=== PATIENT | male | born 1965 | race Caucasian/White ===

== ENCOUNTER 2017-04-15 12:30 | Observation (INO) ==
[2017-04-15] MEDS ORDERED: METOPROLOL TARTRATE 5 MG/5 ML VIAL IV ONE (12:52)
[2017-04-15] MEDS ORDERED: METOPROLOL TARTRATE 5 MG/5 ML VIAL IV STA (12:53)
[2017-04-15 13:20] LABS: Calcium 9.7 MG/DL (8.5-10.1); Osmolality,Calculated 275.7 MOS/KG (273-304); Potassium 4.1 MMOL/L (3.5-5.1)
[2017-04-15] MEDS ORDERED: DOCUSATE SODIUM 100 MG CAPSULE PO PRN (13:52)
[2017-04-15] MEDS ORDERED: ACETAMINOPHEN 325 MG TABLET PO PRN (13:52)
[2017-04-15] MEDS ORDERED: MORPHINE 2 MG/1 ML SYRINGE IV PRN (13:52)
[2017-04-15] MEDS ORDERED: diphenhydrAMINE CAP 25 MG CAPSULE PO PRN (13:52)
[2017-04-15] MEDS ORDERED: ONDANSETRON 4 MG/2 ML VIAL IV PRN (13:52)
[2017-04-15] MEDS ORDERED: ZALEPLON 5 MG CAPSULE PO PRN (13:52)
[2017-04-15] MEDS ORDERED: MAGNESIUM SULF RIDER 2 GM in PREMIX 1 EACH IV PRN (13:52)
[2017-04-15] MEDS ORDERED: MAGNESIUM SULF RIDER 4 GM in PREMIX 1 EACH IV PRN (13:52)
[2017-04-15] MEDS ORDERED: LACTULOSE 20 GM/30 ML UDCUP PO PRN (13:52)
[2017-04-15] MEDS ORDERED: GLUCAGON 1 MG VIAL IM PRN (13:56)
[2017-04-15] MEDS ORDERED: DEXTROSE 50% 25 GM/50 ML VIAL IV PRN (13:56)
[2017-04-15] MEDS ORDERED: CETIRIZINE 10 MG TABLET PO PRN (14:02)
[2017-04-15] MEDS ORDERED: METOPROLOL SUCCINATE XL 25 MG TABLET PO ONE (14:03)
[2017-04-15] MEDS ORDERED: PANTOPRAZOLE 40 MG TABLET PO ONE (15:26)
[2017-04-15] MEDS: PANTOPRAZOLE 40 MG TABLET PO SCH (15:29)
[2017-04-15] MEDS: SODIUM CHLORIDE 0.45% 1,000 ML IV SCH ×2 (15:29→23:11)
[2017-04-15 16:22] LABS: Barbiturates Screen,Urine Negative (Negative); Benzodiazepines Screen,Urine Negative (Negative); Cannabinoid Screen,Urine Negative (Negative); Opiate Screen,Urine Negative (Negative); Phencyclidine Screen,Urine Negative (Negative)
[2017-04-15] MEDS ORDERED: SIMETHICONE CHEW 80 MG TABLET PO PRN (17:19)
[2017-04-15] MEDS ORDERED: MAGNESIUM HYDROXIDE SUSP 30 ML UDCUP PO PRN (17:19)
[2017-04-15] MEDS ORDERED: ATORVASTATIN 20 MG TABLET PO SCH (21:00)
[2017-04-15] MEDS ORDERED: ENOXAPARIN 40 MG/0.4 ML SYRINGE SUBCUT SCH (21:00)
[2017-04-16 00:10] LABS: Apearance,Urine CLEAR (Clear); Bilirubin,Urine Negative (Negative); Blood, Urine Negative (Negative); Glucose,Urine (UA) Negative (Negative); Ketones,Urine Negative (Negative); Nitrite,Urine Negative (Negative); Protein,Urine Negative; RBC,Urine <1 /HPF (0-4); Urine Color Yellow (Yellow); Urine Specific Gravity 1.009 (1.001-1.035); Urine Urobilinogen < 2.0 EU/DL (0.2-1.0); WBC,Urine <1 /HPF (0-6)
[2017-04-16 04:59] LABS: Basophils % 0.3 % (0.0-0.8); Eosinophils # 0.1 10*3/uL (0.0-0.87); Eosinophils % 1.3 % (0.00-10.9); Hematocrit 43.3 VOL% (42.0-52.0); Hemoglobin 15.6 GM/DL (14.0-18.0); Immature Granulocytes % 0.4 %; Immature Granulocytes Absolute 0.04 #; Lymphocytes % 32.3 % (21.2-54.2); Mean Corpuscular Hemoglobin 31 PG (27-34); Mean Corpuscular Volume 85.6 FL (87-102); Mean Platelet Volume 10.7 FL (9.6-12.0); Monocytes # 0.9 10*3/uL (0.11-0.8); Neutrophils # 5.2 10*3/uL (1.4-7.4); Neutrophils % 55.7 % (38.7-73.9); Platelet Count 196 T/CUMM (130-400); Red Blood Count 5.06 MC/CUMM (3.8-5.5); Red Cell Distribution Width 12.6 % (9.3-17.3); White Blood Count 9.3 T/CUMM (4-12)
[2017-04-16 05:41] LABS: Albumin 3.8 G/DL (3.4-5.0); Bilirubin,Total 1.1 MG/DL (0.2-1.0); Calcium 8.6 MG/DL (8.5-10.1); Osmolality,Calculated 275.5 MOS/KG (273-304); Potassium 4.3 MMOL/L (3.5-5.1); Risk Ratio 4.03; Total Protein 7.3 G/DL (6.4-8.3); VLDL CHOLESTEROL 34.2 MG/DL
[2017-04-16] MEDS ORDERED: METOPROLOL SUCCINATE XL 50 MG TABLET PO SCH (09:00)
[2017-04-16] MEDS ORDERED: ASPIRIN EC 81 MG TABLET PO SCH (09:00)
[2017-04-16] MEDS: PANTOPRAZOLE 40 MG TABLET PO SCH (09:09)
[2017-04-16] MEDS: SODIUM CHLORIDE 0.45% 1,000 ML IV SCH ×2 (09:10→14:24)
[2017-04-16 12:03] VITALS: BP 133/74
== END 2017-04-16 15:59 | disposition home or self-care (01) ==
LOC: EDBD → EDUNIT# → N.EDINP 12:30 → N.ED 12:30 → N.TELEN 17:22
PROVIDERS: ADMIT Internal Medicine Cardiovascular Disease; ATTEND Internal Medicine Cardiovascular Disease

== ENCOUNTER 2018-01-04 17:14 | Inpatient (IN) ==
[2018-01-04] MEDS ORDERED: ASPIRIN 325 MG TABLET PO STA (17:48)
[2018-01-04] MEDS ORDERED: NITROGLYCERIN 2% OINT 1 INCH/GM PACK TOP STA (17:48)
[2018-01-04] MEDS ORDERED: ENOXAPARIN 100 MG/ML SYRINGE SUBCUT STA (17:48)
[2018-01-04] MEDS ORDERED: ONDANSETRON 4 MG/2 ML VIAL IV STA (17:48)
[2018-01-04] MEDS ORDERED: ALUM/MAG/SIMETH/LIDO VISC 1:1 30 ML BOTTLE PO STA (17:48)
[2018-01-04] MEDS ORDERED: MORPHINE 4 MG/1 ML VIAL IV STA ×2 (17:48→18:35)
[2018-01-04 18:36] LABS: Basophils % 0.2 % (0.0-0.8); Eosinophils # 0.1 10*3/uL (0.0-0.87); Eosinophils % 0.6 % (0.00-10.9); Hemoglobin 16.6 GM/DL (14.0-18.0); Immature Granulocytes % 0.4 %; Immature Granulocytes Absolute 0.05 #; Lymphocytes # 4.3 10*3/uL (1.4-4.0); Lymphocytes % 36.6 % (21.2-54.2); Mean Corpuscular HGB Conc 35.3 GM/DL (32-36); Mean Corpuscular Hemoglobin 30 PG (27-34); Mean Corpuscular Volume 85.8 FL (87-102); Mean Platelet Volume 11.3 FL (9.6-12.0); Monocytes % 8.4 % (1.7-12.7); Neutrophils # 6.3 10*3/uL (1.4-7.4); Neutrophils % 53.8 % (38.7-73.9); Platelet Count 199 T/CUMM (130-400); Red Blood Count 5.48 MC/CUMM (3.8-5.5); Red Cell Distribution Width 12.4 % (9.3-17.3); White Blood Count 11.7 T/CUMM (4-12)
[2018-01-04 18:43] LABS: PT Patient Result 10.6 SECS
[2018-01-04 18:53] LABS: Albumin 4.4 G/DL (3.4-5.0); Bilirubin,Total 0.6 MG/DL (0.2-1.0); Calcium 9.9 MG/DL (8.5-10.1); Osmolality,Calculated 273.7 MOS/KG (273-304); Potassium 3.6 MMOL/L (3.5-5.1)
[2018-01-04] MEDS ORDERED: SODIUM CHLORIDE 0.9% 1,000 ML IV STA (21:25)
[2018-01-04] MEDS ORDERED: ONDANSETRON 4 MG/2 ML VIAL IV PRN (21:58)
[2018-01-04] MEDS ORDERED: MAGNESIUM SULF RIDER 2 GM in PREMIX 1 EACH IV PRN (21:58)
[2018-01-04] MEDS ORDERED: MORPHINE 4 MG/1 ML VIAL IV PRN (21:58)
[2018-01-04] MEDS ORDERED: MAGNESIUM SULF RIDER 4 GM in PREMIX 1 EACH IV PRN (21:58)
[2018-01-04] MEDS: LISINOPRIL 10 MG TABLET PO SCH (22:10)
[2018-01-04] MEDS: busPIRone 15 MG TABLET PO SCH (23:10)
[2018-01-04] MEDS: SODIUM CHLORIDE 0.9% 1,000 ML IV SCH (23:18)
[2018-01-04] MEDS: NITROGLYCERIN 2% OINT 1 INCH/GM PACK TOP SCH (23:33)
[2018-01-05] MEDS: POTASSIUM CHLORIDE 20 MEQ TABLET PO PRN ×2 (01:47→04:13)
[2018-01-05 03:31] LABS: Basophils % 0.1 % (0.0-0.8); Eosinophils % 0.4 % (0.00-10.9); Hematocrit 43.6 VOL% (42.0-52.0); Hemoglobin 14.8 GM/DL (14.0-18.0); Immature Granulocytes % 0.4 %; Immature Granulocytes Absolute 0.04 #; Lymphocytes # 2.8 10*3/uL (1.4-4.0); Lymphocytes % 29.8 % (21.2-54.2); Mean Corpuscular HGB Conc 33.9 GM/DL (32-36); Mean Corpuscular Hemoglobin 30 PG (27-34); Mean Corpuscular Volume 88.1 FL (87-102); Mean Platelet Volume 11.1 FL (9.6-12.0); Monocytes % 10.6 % (1.7-12.7); Neutrophils # 5.5 10*3/uL (1.4-7.4); Neutrophils % 58.7 % (38.7-73.9); Platelet Count 175 T/CUMM (130-400); Red Blood Count 4.95 MC/CUMM (3.8-5.5); Red Cell Distribution Width 12.7 % (9.3-17.3); White Blood Count 9.3 T/CUMM (4-12)
[2018-01-05 04:07] LABS: Albumin 3.7 G/DL (3.4-5.0); Bilirubin,Total 1.5 MG/DL (0.2-1.0); Calcium 9.2 MG/DL (8.5-10.1); Osmolality,Calculated 275.5 MOS/KG (273-304); Potassium 4.3 MMOL/L (3.5-5.1); Risk Ratio 3.23; Thyroid Stimulating Hormone 2.15 uIU/ml (0.358-3.74); Total Protein 7.6 G/DL (6.4-8.3); VLDL CHOLESTEROL 26.8 MG/DL
[2018-01-05] MEDS: NITROGLYCERIN 2% OINT 1 INCH/GM PACK TOP SCH ×3 (05:38→18:46)
[2018-01-05] MEDS ORDERED: ENOXAPARIN 80 MG/0.8 ML SYRINGE SUBCUT SCH (06:00)
[2018-01-05] MEDS ORDERED: ASPIRIN EC 81 MG TABLET PO SCH (09:00)
[2018-01-05 09:17] LABS: Hepatitis A Ab IgM Quant < 0.02 Index; Hepatitis A Ab IgM Result Negative (Negative); Hepatitis B Core IgM Quant 0.13 Index; Hepatitis B Core IgM Result Negative (Negative); Hepatitis B Surface Ag Quant < 0.10 Index; Hepatitis B Surface Ag Result Negative (Negative); Hepatitis C Virus Ab Quant 0.11 Index; Hepatitis C Virus Ab Result Negative (Negative)
[2018-01-05] MEDS: busPIRone 15 MG TABLET PO SCH ×2 (10:06→21:18)
[2018-01-05] MEDS: SODIUM CHLORIDE 0.9% 1,000 ML IV SCH (12:10)
[2018-01-05] MEDS ORDERED: diphenhydrAMINE CAP 25 MG CAPSULE PO ONE (13:31)
[2018-01-05] MEDS ORDERED: DIAZEPAM 5 MG TABLET PO ONE (13:31)
[2018-01-05] MEDS ORDERED: diphenhydrAMINE CAP 25 MG CAPSULE PO PRN (13:31)
[2018-01-05] MEDS ORDERED: POTASSIUM CHLORIDE RIDER 10 MEQ in PREMIX 1 EACH IV PRN (13:32)
[2018-01-05] MEDS ORDERED: MAGNESIUM SULF RIDER 2 GM in PREMIX 1 EACH IV PRN (13:32)
[2018-01-05] MEDS: METOPROLOL SUCCINATE XL 25 MG TABLET PO SCH (13:46)
[2018-01-05] MEDS: PANTOPRAZOLE 40 MG TABLET PO SCH (13:46)
[2018-01-05] MEDS: ASPIRIN EC 325 MG TABLET PO SCH (13:46)
[2018-01-05] MEDS: LISINOPRIL 10 MG TABLET PO SCH ×2 (13:46→21:18)
[2018-01-05] MEDS ORDERED: LIDOCAINE 1% 20 ML VIAL ONE (14:24)
[2018-01-05] MEDS ORDERED: NITROGLYCERIN DRIP 50 MG/250 ML BOTTLE IV ONE (14:24)
[2018-01-05] MEDS ORDERED: VERAPAMIL 5 MG/2 ML VIAL ONE (14:26)
[2018-01-05] MEDS ORDERED: fentaNYL 100 MCG/2 ML VIAL ONE (14:26)
[2018-01-05] MEDS ORDERED: MIDAZOLAM 2 MG/2 ML VIAL ONE (14:26)
[2018-01-05] MEDS ORDERED: HYDROmorphone 2 MG/1 ML VIAL ONE (14:59)
[2018-01-05] MEDS ORDERED: NITROGLYCERIN SL 0.4 MG TABLET SL PRN (15:03)
[2018-01-05] MEDS ORDERED: ZALEPLON 5 MG CAPSULE PO PRN (15:03)
[2018-01-05] MEDS ORDERED: MAGNESIUM HYDROXIDE SUSP 30 ML UDCUP PO PRN (17:07)
[2018-01-05 17:46] LABS: Albumin 3.8 G/DL (3.4-5.0); Bilirubin,Direct 0.61 MG/DL (0.0-0.20); Bilirubin,Total 1.6 MG/DL (0.2-1.0); Total Protein 7.9 G/DL (6.4-8.3)
[2018-01-05] MEDS ORDERED: ATORVASTATIN 10 MG TABLET PO SCH (21:00)
[2018-01-05] MEDS ORDERED: ACETAMINOPHEN 500 MG TABLET PO ONE (22:00)
[2018-01-06] MEDS: NITROGLYCERIN 2% OINT 1 INCH/GM PACK TOP SCH ×4 (00:22→19:13)
[2018-01-06] MEDS: SODIUM CHLORIDE 0.9% 1,000 ML IV SCH ×2 (01:10→16:14)
[2018-01-06 03:57] LABS: Basophils % 0.2 % (0.0-0.8); Eosinophils # 0.2 10*3/uL (0.0-0.87); Eosinophils % 1.4 % (0.00-10.9); Hematocrit 42.9 VOL% (42.0-52.0); Hemoglobin 14.4 GM/DL (14.0-18.0); Immature Granulocytes % 0.4 %; Immature Granulocytes Absolute 0.04 #; Lymphocytes # 3.1 10*3/uL (1.4-4.0); Lymphocytes % 27.9 % (21.2-54.2); Mean Corpuscular HGB Conc 33.6 GM/DL (32-36); Mean Corpuscular Hemoglobin 30 PG (27-34); Mean Corpuscular Volume 88.5 FL (87-102); Mean Platelet Volume 11.4 FL (9.6-12.0); Monocytes # 1.1 10*3/uL (0.11-0.8); Neutrophils # 6.6 10*3/uL (1.4-7.4); Neutrophils % 60.1 % (38.7-73.9); Platelet Count 169 T/CUMM (130-400); Red Blood Count 4.85 MC/CUMM (3.8-5.5); Red Cell Distribution Width 12.8 % (9.3-17.3)
[2018-01-06 04:27] LABS: Calcium 8.5 MG/DL (8.5-10.1); Osmolality,Calculated 275.5 MOS/KG (273-304); Potassium 3.8 MMOL/L (3.5-5.1)
[2018-01-06 08:43] LABS: Albumin 3.5 G/DL (3.4-5.0); Bilirubin,Direct 0.18 MG/DL (0.0-0.20); Bilirubin,Indirect 0.6 MG/DL (0.0-1.0); Bilirubin,Total 0.8 MG/DL (0.2-1.0); Total Protein 7.5 G/DL (6.4-8.3)
[2018-01-06] MEDS: ASPIRIN EC 325 MG TABLET PO SCH (10:15)
[2018-01-06] MEDS: PANTOPRAZOLE 40 MG TABLET PO SCH (10:15)
[2018-01-06] MEDS: LISINOPRIL 10 MG TABLET PO SCH ×2 (10:15→21:14)
[2018-01-06] MEDS: METOPROLOL SUCCINATE XL 25 MG TABLET PO SCH (10:15)
[2018-01-06] MEDS: busPIRone 15 MG TABLET PO SCH ×2 (10:15→21:15)
[2018-01-06] MEDS ORDERED: DOCUSATE SODIUM 100 MG CAPSULE PO PRN (14:57)
[2018-01-06] MEDS: CETIRIZINE 10 MG TABLET PO PRN (17:38)
[2018-01-07] MEDS: NITROGLYCERIN 2% OINT 1 INCH/GM PACK TOP SCH ×2 (00:01→06:11)
[2018-01-07 03:54] LABS: Albumin 3.4 G/DL (3.4-5.0); Bilirubin,Direct 0.14 MG/DL (0.0-0.20); Bilirubin,Indirect 0.7 MG/DL (0.0-1.0); Bilirubin,Total 0.8 MG/DL (0.2-1.0); Total Protein 7.6 G/DL (6.4-8.3)
[2018-01-07] MEDS: SODIUM CHLORIDE 0.9% 1,000 ML IV SCH ×2 (06:10→06:11)
[2018-01-07] MEDS: LISINOPRIL 10 MG TABLET PO SCH (10:03)
[2018-01-07] MEDS: PANTOPRAZOLE 40 MG TABLET PO SCH (10:03)
[2018-01-07] MEDS: METOPROLOL SUCCINATE XL 25 MG TABLET PO SCH (10:04)
[2018-01-07] MEDS: busPIRone 15 MG TABLET PO SCH (10:04)
[2018-01-07] MEDS: ASPIRIN EC 325 MG TABLET PO SCH (10:04)
[2018-01-07] MEDS: CETIRIZINE 10 MG TABLET PO PRN (10:05)
[2018-01-07 12:09] VITALS: BP 116/73
== END 2018-01-07 13:53 | disposition home or self-care (01) | DRG 287 ==
LOC: N.ED 17:14 → N.EDINP 19:18 → N.TELES 21:10
PROVIDERS: ADMIT Internal Medicine Cardiovascular Disease; ATTEND Internal Medicine Cardiovascular Disease
PROC: CLCCHCL (ICD-10-PCS; 2018-01-05 14:45)